=== PATIENT | male | born 1945 | race Caucasian/White ===

== ENCOUNTER 2017-08-04 17:52 | Emergency (ER) | payer OTHER ==
[2017-08-04 18:41] VITALS: BP 128/76; TEMP 97.6; O2SAT 97
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
== END 2017-08-04 18:55 | disposition home or self-care (01) ==
LOC: ER 17:52
DX: S00.31XA Abrasion of nose, initial encounter (principal); S00.81XA Abrasion of other part of head, initial encounter; V50.5XXA Driver of pick-up truck or van injured in collision with pedestrian or animal in traffic accident, initial encounter; Y92.410 Unspecified street and highway as the place of occurrence of the external cause